=== PATIENT | male | born 1990 | race Two or more races ===

== ENCOUNTER → 2024-09-05 | Emergency (ER) | payer OTHER ==
[~2024-09-05] VITALS: Ht 167.6 cm; Wt 84.8 kg
[~2024-09-05] MED LIST: 0.9 % SODIUM CHLORIDE 1,000 ML IV STA; ONDANSETRON HCL 2 MG/ML VIAL IV STA; ONDANSETRON HCL 2 MG/ML VIAL ONE
[2024-09-05 20:54] VITALS: BP 130/80; O2SAT 99
== END | disposition home or self-care (01) ==
LOC: ER 20:30
DX: T40.715A Adverse effect of cannabis, initial encounter (principal); R42 Dizziness and giddiness; Z88.2 Allergy status to sulfonamides